=== PATIENT | male | born 1955 | race Caucasian/White ===

== ENCOUNTER 2020-12-04 18:31 | Emergency (ER) | payer OTHER ==
[2020-12-04] MEDS ORDERED: Bacitracin Oint 1 GM U/D Packet TOP ONE (18:54)
[2020-12-04] MEDS ORDERED: Diphtheria,Pertussis(Acell),Tetanus Vaccine 0.5 ML Syringe IM ONE (19:13)
[2020-12-04] MEDS ORDERED: Acetaminophen 500 MG Tab PO ONE (20:03)
--- NOTE | 2020-12-04 20:07 | EDM.PDOC ---
ED HPI GENERAL MEDICAL PROBLEM - General Chief Complaint: Laceration Stated Complaint: HIT KNEE WITH HATCHET Time Seen by Provider: 12/04/20 18:54 Source of Information: Reports: Patient History Limitations: Reports: No Limitations - History of Present Illness INITIAL COMMENTS - FREE TEXT/NARRATIVE: Josesito is a 65-year-old male presenting to the ED for evaluation of a lacerati on to his left lower knee. Patient was chopping wood with a hatchet. The wound was on a stump about knee level and he struck the board causing a glancing blow resulting in the blade of the hatchet going into the skin just below the knee. He is on Plavix so he had significant bleeding. His neighbor at their [facility] is a nurse and she applied direct pressure and dressed the wound with a maxi pad and Coban. Patient arrived with bleeding controlled. He is unclear of when his last tetanus shot was so we will booster that today. He does still have normal range of motion of the knee. No distal numbness or tingling. Left Knee Pain Score (Numeric/FACES): 6 - Related Data Allergies Allergy/AdvReac Type Severity Reaction Status Date / Time latex Allergy Rash Verified 12/04/20 18:55 Penicillins Allergy Rash Verified 12/04/20 18:55 Home Meds: Home Meds . [Unable to Verify Home Med List] 12/04/20 [History] Past Medical History HEENT History: Reports: Cataract, Hard of Hearing, Impaired Vision, Other (See Below) Other HEENT History: Hearing aid Cardiovascular History: Reports: Hypertension, PA, Stents Musculoskeletal History: Reports: Fracture Other Musculoskeletal History: Fx leg, hand foot r arm Neurological History: Reports: Concussion Endocrine/Metabolic History: Reports: Obesity/BMI 30+ - Infectious Disease History Infectious Disease History: Reports: Chicken Pox, Measles, Mumps - Past Surgical History Cardiovascular Surgical History: Reports: Coronary Artery Stent GI Surgical History: Reports: Other (See Below) Other GI Surgeries/Procedures: surgery for acid reflux Musculoskeletal Surgical History: Reports: Knee Replacement Social & Family History - Tobacco Use Tobacco Use Status *Q: Never Tobacco User Second Hand Smoke Exposure: No - Caffeine Use Caffeine Use: Reports: Coffee, Tea - Recreational Drug Use Recreational Drug Use: No ED ROS GENERAL - Review of Systems Review Of Systems: See Below Constitutional: Reports: No Symptoms Musculoskeletal: Reports: Joint Pain (The pain secondary to hatchet induced laceration.) Skin: Reports: Wound (Laceration just below the left knee due to a hatchet. The wound is horizontal but spares the patellar tendon. Is lateral to the path of the patellar tendon. Patient has full range of motion of the knee) Neurological: Reports: No Symptoms ED EXAM, SKIN/RASH Exam: See Below Exam Limited By: No Limitations General Appearance: Alert, No Apparent Distress, Anxious Peripheral Pulses: 2+: Posterior Tibial (L) Extremities: Normal Range of Motion, Other (2.6 cm laceration below the left knee lateral to the patellar tendon.) Neurological: Alert, Oriented, Normal Cognition, No Motor/Sensory Deficits Skin: Wound/Incision (2.6 cm laceration just below the left knee lateral to patellar tendon. The wound goes into the subcutaneous tissue. We will get x- ray to reveal whether or not the hatchet blade made contact with bone.) Location, Skin: Lower Extremity, Left Characteristics: Linear Associated features: Tenderness ED SKIN PROCEDURES - Laceration/Wound Repair Left Lower Anterior Knee Appearance: Subcutaneous, Mildly Contaminated Distal NVT: Neuro & Vascular Intact Anesthetic Type: Local Local Anesthesia - Lidocaine (Xylocaine): 1% Plain Local Anesthetic Volume: 4cc Skin Prep: Chlorhexidine (Hibiciens) Exploration/Debridement/Repair: Wound Explored, In a Bloodless Field, Explored to Base Closed with: Sutures Lac/Wound length In cm: 2.7 Suture Size: 4-0 # of Sutures: 5 Suture Type: Nylon, Interrupted Sterile Dressing Applied: Provider Tetanus Status Addressed: Yes Complications: No Course - Vital Signs Last Recorded V/S: Last Vital Signs Temp 36.3 C 12/04/20 18:54 Pulse 57 L 12/04/20 18:54 Resp 16 12/04/20 18:54 BP 129/71 12/04/20 18:54 Pulse Ox 98 12/04/20 18:54 - Orders/Labs/Meds Orders: Active Orders 24 hr Category Date Time Status Vaccines to be Administered [RC] PER UNIT ROUTINE Care 12/04/20 19:13 Active Knee 3V Lt [CR] Stat Exams 12/04/20 18:54 Taken Meds: Medications Discontinued Medications Generic Name Dose Route Start Last Admin Trade Name Freq PRN Reason Stop Dose Admin Acetaminophen 1,000 mg 12/04/20 20:03 Acetaminophen 500 Mg Tab PO 12/04/20 20:04 ONETIME ONE Bacitracin 1 dose 12/04/20 18:54 Bacitracin Oint 1 Gm U/D Packet TOP 12/04/20 18:55 ONETIME ONE Diphtheria/Tetanus/Acell Pertussis 0.5 ml 12/04/20 19:13 Diphtheria,Pertussis(Acell),Tetanus Vaccine 0.5 Ml Syringe IM 12/04/20 19:14 .ONCE ONE Lidocaine HCl 5 ml 12/04/20 18:54 Lidocaine 1% 5 Ml Sdv INJECT 12/04/20 18:55 ONETIME ONE - Radiology Interpretation Free Text/Narrative:: 3 of the left knee failed to demonstrate any osseous abnormalities related to the hatchet incision. - Re-Assessments/Exams Free Text/Narrative Re-Assessment/Exam: 12/04/20 20:05 the wound was cleansed and anesthetized using lidocaine 1% requiring about 4 cc. Wound was then closed using 4-0 Ethilon requiring 5 simple interrupted sutures. Patient tolerated the procedure well without complications. A light coating of bacitracin was applied over which an [employer] dressing was placed and secured with 4 x 4's and band. He should keep the dressing in place for the next 24 hours. After which time, the patient may just put a simple dressing on. He should keep the wound clean and dry for 24 hours. Because the hatchet was dirty, we will put him on cephalexin 500 mg 3 times daily for 5 days. His tetanus was boosted. Departure - Departure Time of Disposition: 20:03 Disposition: Home, Self-Care 01 Clinical Impression: Laceration of left lower leg Qualifiers: Encounter type: initial encounter Qualified Code(s): S81.812A - Laceration without foreign body, left lower leg, initial encounter - Discharge Information Instructions: Laceration Care, Adult Referrals: PCP,None [Primary Care Provider] - Forms: ED Department Discharge Care Plan Goals: The sutures that have been placed will need to stay clean and dry for least 24 hours. We are going to put you on an antibiotic to help prevent infection. The antibiotic is Keflex which you will take 1 capsule 3 times a day for 5 days. We have updated your tetanus today so you are good for 5-10 more years. You will need to have the sutures removed in 10 days which can be done at your local providers office or you may return to the ED. You to take Tylenol for pain as needed. After 24 hours, you may be able to submerge your knee in water. Sepsis Event Note (ED) - Evaluation Sepsis Screening Result: No Definite Risk - Focused Exam Vital Signs: Vital Signs Temp Pulse Resp BP Pulse Ox 12/04/20 18:54 36.3 C 57 L 16 129/71 98 12/04/20 18:52 36.3 C 57 L 16 129/71 98 - Problem List & Annotations (1) Laceration of left lower leg SNOMED Code(s): 84774254094167219 Code(s): S81.812A - LACERATION WITHOUT FOREIGN BODY, LEFT LOWER LEG, INIT ENCNTR Status: Acute Priority: Medium Current Visit: Yes Qualifiers: Encounter type: initial encounter Qualified Code(s): S81.812A - Laceration without foreign body, left lower leg, initial encounter - Problem List Review Problem List Initiated/Reviewed/Updated: Yes - My Orders Last 24 Hours: My Active Orders 12/04/20 18:54 Knee 3V Lt [CR] Stat 12/04/20 19:13 Vaccines to be Administered [RC] PER UNIT ROUTINE - Assessment/Plan Last 24 Hours: My Active Orders 12/04/20 18:54 Knee 3V Lt [CR] Stat 12/04/20 19:13 Vaccines to be Administered [RC] PER UNIT ROUTINE
--- NOTE | 2020-12-06 09:46 | CR ---
Knee 3V Lt CLINICAL HISTORY: Injury FINDINGS: No acute fracture or dislocation is noted. There are no osseous lesions. There is metallic foreign body in the medial soft tissues of the distal thigh. There is some patellar spurring from osteoarthritis Impression: No fracture Small metallic foreign body medial distal thigh Osteoarthritis
== END 2020-12-04 20:28 | disposition home or self-care (01) ==
LOC: JP.ED 18:31
DX: S81.012A Laceration without foreign body, left knee, initial encounter (principal); I10 Essential (primary) hypertension; I25.2 Old myocardial infarction; E66.9 Obesity, unspecified; Z68.24 Body mass index [BMI] 24.0-24.9, adult; Z91.040 Latex allergy status; Z23 Encounter for immunization; Z88.0 Allergy status to penicillin; Z79.02 Long term (current) use of antithrombotics/antiplatelets; W22.8XXA Striking against or struck by other objects, initial encounter
CPT/HCPCS: 12002; 73562; 90471; 90715; 99283; A9270